=== PATIENT | male | born 1980 | race Two or more races ===

== ENCOUNTER 2017-06-09 21:58 | Emergency (ER) | payer SELFPAY ==
[2017-06-09 22:44] LABS: BILIRUBIN,URINE NEGATIVE (NEG); GLUCOSE,URINE NEGATIVE (NEG); NITRITE,URINE NEGATIVE (NEG); PH,URINE 7.5; PROTEIN,URINE NEGATIVE (NEG-TRACE); UROBILINOGEN,URINE 0.2 mg/dL (0.2 mg/dL)
--- NOTE | 2017-06-09 22:45 | PHYS DOC ---
Past Medical History Past Medical History: No Pertinent History Past Surgical History: No Surgical History Adult General Chief Complaint Chief Complaint: ABDOMINAL PAIN HPI HPI Patient is a 37 year old male who presents with complaint of right upper quadrant abdominal pain that started earlier this evening. Patient states that the pain has progressively worsened over the past few hours and currently rates his pain as 10 out of 10. Patient states that the pain is sharp and radiates into his right shoulder. Patient denies history of similar symptoms. Patient has no significant past medical or surgical history. The patient has had no nausea, vomiting, or fever associated with his symptoms. Patient denies any recent travel. Patient has not taken any medications to help with symptoms at this time. Review of Systems Review of Systems Constitutional: Denies fever or chills [] Eyes: Denies change in visual acuity, redness, or eye pain [] HENT: Denies nasal congestion or sore throat [] Respiratory: Denies cough or shortness of breath [] Cardiovascular: Denies chest pain or edema[] GI: Abdominal pain, denies nausea, vomiting, or diarrhea[] : Denies dysuria or hematuria [] Musculoskeletal: Back pain[] Integument: Denies rash or skin lesions [] Neurologic: Denies headache, focal weakness or sensory changes [] Current Medications Current Medications Current Medications Medications (Trade) Dose Ordered Sig/[place] Start Time Stop Time Status Last Admin Dose Admin Fentanyl Citrate (Fentanyl 2ml Vial) 50 mcg PRN Q15MIN PRN 06/09/17 22:45 06/10/17 22:44 06/09/17 23:53 50 MCG Info (Do NOT chart on this entry -- for MONITORING) 1 each PRN DAILY PRN 06/10/17 00:30 06/12/17 00:29 Iohexol (Omnipaque 300 Mg/ml) 75 ml STK-MED ONCE 06/10/17 00:31 06/10/17 00:32 DC Ondansetron HCl (Zofran) 4 mg 1X ONCE 06/09/17 23:00 06/09/17 23:01 DC 06/09/17 23:00 4 MG Sodium Chloride 1,000 ml @ 1,000 mls/hr Q1H 06/09/17 23:00 06/09/17 23:59 DC 06/09/17 23:00 1,000 MLS/HR Allergies Allergies Allergies Coded Allergies Type Severity Reaction Last Updated Verified No Known Drug Allergies 06/09/17 No Physical Exam Physical Exam Constitutional: Alert, afebrile, appears in moderate discomfort. [] HENT: Normocephalic, atraumatic, bilateral external ears normal, oropharynx moist, no oral exudates, nose normal. [] Eyes: PERRLA, EOMI, conjunctiva normal, no discharge. [] Neck: Normal range of motion, no tenderness, supple, no stridor. [] Cardiovascular:Heart rate regular rhythm, no murmur [] Lungs & Thorax: Bilateral breath sounds clear to auscultation [] Abdomen: Bowel sounds normal, soft, epigastric and right upper quadrant tenderness to palpation with mild guarding, no rebound tenderness, no masses, no pulsatile masses. [] Skin: Warm, dry, no erythema, no rash. [] Back: No midline tenderness, mild right mid lumbar paraspinous muscle tenderness to palpation, no CVA tenderness. [] Extremities: No tenderness, no cyanosis, no clubbing, ROM intact, no edema. [] Neurologic: Alert and oriented X 3, normal motor function, normal sensory function, no focal deficits noted. [] Current Patient Data Vital Signs Vital Signs Date Time Temp Pulse Resp B/P (MAP) Pulse Ox O2 Delivery O2 Flow Rate FiO2 06/09/17 22:20 98.2 74 18 145/89 (107) 100 Nasal Cannula 98.2 Lab Values Laboratory Tests Test 06/09/17 22:20 06/09/17 22:50 Urine Collection Type Unknown Urine Color Yellow Urine Clarity Clear Urine pH 7.5 Urine Specific [place] 1.015 Urine Protein Negative mg/dL (NEG-TRACE) Urine Glucose (UA) Negative mg/dL (NEG) Urine Ketones (Stick) Negative mg/dL (NEG) Urine Blood Negative (NEG) Urine Nitrite Negative (NEG) Urine Bilirubin Negative (NEG) Urine Urobilinogen Dipstick 0.2 mg/dL (0.2 mg/dL) Urine Leukocyte Esterase Negative (NEG) Urine RBC 1-2 /HPF (0-2) Urine WBC 0 /HPF (0-4) Urine Bacteria 0 /HPF (0-FEW) White Blood Count 7.2 x10^3/uL (4.0-11.0) Red Blood Count 4.83 x10^6/uL (4.30-5.70) Hemoglobin 14.3 g/dL (13.0-17.5) Hematocrit 42.9 % (39.0-53.0) Mean Corpuscular Volume 89 fL (79-100) Mean Corpuscular Hemoglobin 30 pg (25-35) Mean Corpuscular Hemoglobin Concent 33 g/dL (31-37) Red Cell Distribution Width 13.0 % (11.5-14.5) Platelet Count 217 x10^3/uL (140-400) Neutrophils (%) (Auto) 57 % (31-73) Lymphocytes (%) (Auto) 29 % (24-48) Monocytes (%) (Auto) 6 % (0-9) Eosinophils (%) (Auto) 7 % (0-3) H Basophils (%) (Auto) 1 % (0-3) Neutrophils # (Auto) 4.1 x10^3uL (1.8-7.7) Lymphocytes # (Auto) 2.1 x10^3/uL (1.0-4.8) Monocytes # (Auto) 0.5 x10^3/uL (0.0-1.1) Eosinophils # (Auto) 0.5 x10^3/uL (0.0-0.7) Basophils # (Auto) 0.1 x10^3/uL (0.0-0.2) Sodium Level 138 mmol/L (136-145) Potassium Level 3.7 mmol/L (3.5-5.1) Chloride Level 102 mmol/L (98-107) Carbon Dioxide Level 28 mmol/L (21-32) Anion Gap 8 (6-14) Blood Urea Nitrogen 14 mg/dL (8-26) Creatinine 0.5 mg/dL (0.7-1.3) L Estimated GFR (Cockcroft-Gault) 189.2 BUN/Creatinine Ratio 28 (6-20) H Glucose Level 140 mg/dL (70-99) H Calcium Level 8.0 mg/dL (8.5-10.1) L Total Bilirubin 0.6 mg/dL (0.2-1.0) Aspartate Amino Transferase (AST) 57 U/L (15-37) H Alanine Aminotransferase (ALT) 71 U/L (16-63) H Alkaline Phosphatase 151 U/L (46-116) H Total Protein 8.2 g/dL (6.4-8.2) Albumin 3.9 g/dL (3.4-5.0) Albumin/Globulin Ratio 0.9 (1.0-1.7) L Lipase 131 U/L (73-393) Laboratory Tests 06/09/17 22:50 Laboratory Tests 06/09/17 22:50 EKG EKG Interpreted by me: Heart rate 70, normal sinus rhythm, leftward axis, nonspecific T-wave inversion in lead 3, acute ST elevations or depressions[] Radiology/Procedures Radiology/Procedures One view AP chest x-ray interpreted by me: No infiltrate, no effusions, normal cardiac silhouette [facility] [address] [place], [place] [id number] IMAGING REPORT Signed PATIENT: JULIO CESAR GARNER ACCOUNT: [id number] : 1980 LOCATION: ER AGE: 37 SEX: M EXAM STATUS: REG ER ORD. PHYSICIAN: ALVINO BONILLA MD REASON: right-sided abdominal pain PROCEDURE: CT ABD PELV W/ IV CONTRST ONLY CT abdomen and pelvis with contrast 06/10/2017 CLINICAL INDICATION: Right-sided abdominal pain. COMPARISON: None. TECHNIQUE: Multiple CT images of the abdomen and pelvis were obtained following the uneventful intravenous administration of 75 mL Omnipaque 300. Coronal and sagittal reformations were obtained. *One or more of the following individualized dose reduction techniques were utilized for this examination: 1. Automated exposure control. 2. Adjustment of the mA and/or kV according to patient size. 3. Use of iterative reconstruction technique. Findings: Abdomen and pelvis: Heart size is normal. Visualized lung bases are clear. Liver, gallbladder, spleen, adrenal glands, pancreas and kidneys are grossly unremarkable. No intraextra hepatic [place] ductal dilatation. Abdominal aorta is normal in caliber. Major portal, splenic and visualized superior mesenteric veins are patent. DeGraff small and large bowel loops are normal in caliber without obstruction. Mild distal colonic diverticula without diverticulitis. No abdominal lymphadenopathy or free fluid. Mildly distended unopacified urinary bladder unremarkable. Prostate seminal vesicles are unremarkable. No pelvic lymphadenopathy or free fluid. There are no destructive osseous lesions. IMPRESSION: No acute abdominopelvic inflammatory process. Electronically signed by: Rivera Ramos MD (06/10/2017 1:40 AM) [facility] DICTATED and SIGNED BY: RIVERA RAMOS MD DATE: 06/10/17 0136 CC: ALVINO BONILLA MD; NO PCP ~ [facility] [address] [place] [address] IMAGING REPORT Signed PATIENT: JULIO CESAR GARNER ACCOUNT: [id number] : 1980 LOCATION: ER AGE: 37 SEX: M EXAM STATUS: REG ER ORD. PHYSICIAN: ALVINO BONILLA MD REASON: right upper quadrant abdominal pain PROCEDURE: ABDOMEN LTD Ultrasound abdomen limited 06/09/2017 CLINICAL INDICATION: Right upper quadrant pain for 8 hours radiating to the shoulder. COMPARISON: None. FINDINGS: Pancreas is not well visualized due to overlying bowel gas. Visualized liver is homogeneous in echotexture without suspicious mass or fluid collection. Gallbladder is only partially distended without cholelithiasis, gallbladder wall thickening, pericholecystic cystic fluid or sonographic Cooper's sign elicited. Right kidney is present measuring 10.0 cm in length without collecting system dilatation. No intra or extrahepatic biliary ductal dilatation. Common bile duct measures 3 mm. IMPRESSION: No cholelithiasis or sonographic evidence of acute cholecystitis. Electronically signed by: Rivera Ramos MD (06/09/2017 11:24 PM) [facility] DICTATED and SIGNED BY: RIVERA RAMOS MD DATE: 06/09/17 2322 CC: ALVINO BONILLA MD; NO PCP ~ [] Course & Med Decision Making Course & Med Decision Making Pertinent Labs and Imaging studies reviewed. (See chart for details) Patient was given IV fluids, Zofran, and fentanyl. On reevaluation, patient's symptoms have improved at this time. The patient's imaging shows no acute surgical pathology causing patient's symptoms. Patient etiology of symptoms likely intraluminal involving stomach and/or upper small intestine. Patient will be started on Pepcid, [place], and Zofran. Advised follow-up in 2-3 days for reevaluation and return to emergency department for any worsening symptoms. Patient was understanding and in agreement with treatment plan. Dragon Disclaimer Dragon Disclaimer This electronic medical record was generated, in whole or in part, using a voice recognition dictation system. Departure Departure Impression: Primary Impression: Abdominal pain Disposition: HOME, SELF-CARE Condition: IMPROVED Patient Instructions: Abdominal Pain (Nonspecific) Additional Instructions: Follow-up with your primary doctor in 2-3 days for reevaluation. Return to emergency department for any worsening symptoms. Scripts Hydrocodone/Apap 5-325 (NORCO 5-325 TABLET) 1 Each Tablet 1 TAB PO Q4-6HRS Y for PAIN, #15 TAB Prov: ALVINO BONILLA MD 06/10/17 Famotidine (PEPCID) 20 Mg Tablet 20 MG PO BID, #30 TAB Prov: ALVINO BONILLA MD 06/10/17 Ondansetron (ZOFRAN ODT) 4 Mg Tab.rapdis 1 TAB SL Q6-8HRS Y for NAUSEA/VOMITING, #15 TAB Prov: ALVINO BONILLA MD 06/10/17 Problem Qualifiers Primary Impression: Abdominal pain Abdominal location: right upper quadrant Qualified Codes: R10.11 - Right upper quadrant pain ALVINO BONILLA MD Jun 09, 2017 22:45
[2017-06-09 22:50] LABS: BACTERIA,URINE 0 /HPF (0-FEW); WBC,URINE 0 /HPF (0-4)
[2017-06-09 22:55] LABS: BASO # 0.1 x10^3/uL (0.0-0.2); BASO % 1 % (0-3); EOS % 7 % (0-3); HEMATOCRIT 42.9 % (39.0-53.0); LYMPH # 2.1 x10^3/uL (1.0-4.8); LYMPH % 29 % (24-48); MEAN CORPUSCULAR VOLUME 89 fL (79-100); MONO % 6 % (0-9); NEUT % 57 % (31-73); PLATELET COUNT 217 x10^3/uL (140-400); RED BLOOD COUNT 4.83 x10^6/uL (4.30-5.70); WHITE BLOOD COUNT 7.2 x10^3/uL (4.0-11.0)
[2017-06-09] MEDS ORDERED: IV NORMAL SALINE 1000ML BAG 1,000 ML IV SCH (23:00)
[2017-06-09] MEDS ORDERED: ONDANSETRON PF 4 MG/2 ML VIAL. IV ONE (23:00)
[2017-06-09 23:10] LABS: POTASSIUM 3.7 mmol/L (3.5-5.1)
[2017-06-09] MEDS: fentaNYL PF VIAL 100 MCG/2 ML VIAL IV PRN ×2 (23:10→23:53)
[2017-06-09 23:14] LABS: HEMOGLOBIN 14.3 g/dL (13.0-17.5); MEAN CORPUSCULAR HEMOGLOBIN 30 pg (25-35); MEAN CORPUSCULAR HGB CONC 33 g/dL (31-37)
[2017-06-09 23:16] LABS: ALBUMIN 3.9 g/dL (3.4-5.0); TOTAL BILIRUBIN 0.6 mg/dL (0.2-1.0)
--- NOTE | 2017-06-09 23:27 | RAD ---
Ultrasound abdomen limited 06/09/2017 CLINICAL INDICATION: Right upper quadrant pain for 8 hours radiating to the shoulder. COMPARISON: None. FINDINGS: Pancreas is not well visualized due to overlying bowel gas. Visualized liver is homogeneous in echotexture without suspicious mass or fluid collection. Gallbladder is only partially distended without cholelithiasis, gallbladder wall thickening, pericholecystic cystic fluid or sonographic Cooper's sign elicited. Right kidney is present measuring 10.0 cm in length without collecting system dilatation. No intra or extrahepatic biliary ductal dilatation. Common bile duct measures 3 mm. IMPRESSION: No cholelithiasis or sonographic evidence of acute cholecystitis. Electronically signed by: Ethan Ramos MD (06/09/2017 11:24 PM) [facility]
[2017-06-09 23:35] LABS: ALBUMIN/GLOBULIN RATIO 0.9 (1.0-1.7); TOTAL PROTEIN 8.2 g/dL (6.4-8.2)
[2017-06-09 23:41] LABS: CREATININE 0.5 mg/dL (0.7-1.3); GFR 189.2
[2017-06-10] MEDS ORDERED: CONTRAST GIVEN MC PRN (00:30)
[2017-06-10] MEDS ORDERED: IOHEXOL 300 MG/ML 75 ML VIAL ONE (00:31)
[2017-06-10] MEDS ORDERED: IOHEXOL 300 MG/ML 75 ML VIAL IV ONE (01:00)
--- NOTE | 2017-06-10 01:43 | RAD ---
CT abdomen and pelvis with contrast 06/10/2017 CLINICAL INDICATION: Right-sided abdominal pain. COMPARISON: None. TECHNIQUE: Multiple CT images of the abdomen and pelvis were obtained following the uneventful intravenous administration of 75 mL Omnipaque 300. Coronal and sagittal reformations were obtained. *One or more of the following individualized dose reduction techniques were utilized for this examination: 1. Automated exposure control. 2. Adjustment of the mA and/or kV according to patient size. 3. Use of iterative reconstruction technique. Findings: Abdomen and pelvis: Heart size is normal. Visualized lung bases are clear. Liver, gallbladder, spleen, adrenal glands, pancreas and kidneys are grossly unremarkable. No intraextra hepatic [place] ductal dilatation. Abdominal aorta is normal in caliber. Major portal, splenic and visualized superior mesenteric veins are patent. [place]ff small and large bowel loops are normal in caliber without obstruction. Mild distal colonic diverticula without diverticulitis. No abdominal lymphadenopathy or free fluid. Mildly distended unopacified urinary bladder unremarkable. Prostate seminal vesicles are unremarkable. No pelvic lymphadenopathy or free fluid. There are no destructive osseous lesions. IMPRESSION: No acute abdominopelvic inflammatory process. Electronically signed by: Ethan Ramos MD (06/10/2017 1:40 AM) [facility]
[2017-06-10] MEDS ORDERED: FAMO-63 PO (02:01)
[2017-06-10] MEDS ORDERED: HYDR-971 PO (02:01)
[2017-06-10] MEDS ORDERED: ONDA4TAB10 SL (02:01)
[2017-06-10 02:04] VITALS: BP 111/62
--- NOTE | 2017-06-10 06:46 | EKG ---
[facility] [address] [place] [address] Test Date: 2017-06-09 Test Time: 22:40:02 Pat Name: JULIO CESAR GANRER Department: Room: Gender: M [employer]: : 1980 Requested By: ALVINO BONILLA Order Number: [id number] Reading MD: Measurements Intervals [place] Rate: 70 P: 28 DE: 142 QRS: -7 QRSD: 86 T: 6 QT: 388 QTc: 422 Interpretive Statements SINUS RHYTHM LEFTWARD AXIS INCOMPLETE RIGHT BUNDLE BRANCH BLOCK NON SPECIFIC ST-T ABNORMALITY (ELEVATION) OTHERWISE NORMAL ECG RI6.01 Unconfirmed report No previous ECG available for comparison
--- NOTE | 2017-06-10 07:31 | RAD ---
Portable chest, 06/09/2017: History: Chest wall and upper abdominal pain The heart size and pulmonary vascularity are normal. The lungs are clear. There is no evidence of pleural fluid. IMPRESSION: No acute cardiopulmonary abnormality is detected.
== END 2017-06-10 02:04 | disposition home or self-care (01) ==
LOC: ER 22:57
DX: R10.11 Right upper quadrant pain (principal); M54.5 Low back pain
CPT/HCPCS: 36415; 71010; 74177; 76705; 80053; 81001; 83690; 85025; 93005; 96361; 96374; 96375; 96376; 99285; J2405; J3010; J7030